=== PATIENT | male | born 1955 | race Caucasian/White ===

== ENCOUNTER 2020-10-05 14:02 | Emergency (ER) | payer OTHER ==
[~2020-10-05] VITALS: Ht 175.3 cm; Wt 99.8 kg
[2020-10-05] MEDS ORDERED: NOHOMEMEDICATIONS (14:28)
[2020-10-05 15:19] LABS: URINE BILIRUBIN NEGATIVE (Negative); URINE BLOOD NEGATIVE (Negative); URINE CLARITY CLEAR; URINE COLOR YELLOW; URINE GLUCOSE-RANDOM NEGATIVE (Negative); URINE KETONES NEGATIVE (Negative); URINE LEUKOCYTES-REFLEX NEGATIVE (Negative); URINE NITRITE-REFLEX NEGATIVE (Negative); URINE PROTEIN 1+ (Negative); URINE SPECIFIC GRAVITY 1.025 (1.005-1.030); URINE UROBILINOGEN 0.2 E.U./dl (0.2-1.0)
[2020-10-05 15:22] VITALS: BP 168/112
--- NOTE | 2020-10-06 14:38 | EKG ---
[place] [address] ELECTROCARDIOGRAM REPORT Name: ANDREW CALDWELL Room: [facility].#: [id number] Admission: 10/05/20 Attend Phys: Discharge: Date of : 51 Date of Service: 10/05/20 1433 Report #: [id number] THIS REPORT FOR: //name// [facility] ED Test Date: 2020-10-05 Test Time: 14:33:06 Pat Name: ANDREW CALDWELL Department: Room: Gender: Dural Mechanic: : 1955 Requested By: Alessandra De Jesus Order Number: [id number] MD: Crow Nagy Measurements Intervals [place] Rate: 91 P: 44 [place]: 165 QRS: -91 QRSD: 168 T: 20 QT: 430 QTc: 530 Interpretive Statements Sinus rhythm Probable left atrial enlargement RBBB and LAFB No previous ECG available for comparison Electronically Signed On 10-06-2020 14:38:11 CDT by Crow Nagy [email or web address] <ELECTRONICALLY SIGNED> By: Crow Nagy MD, [facility] 10/06/20 1438 1433 143 Crow Nagy MD, FACC /EPI
== END 2020-10-05 15:31 | disposition home or self-care (01) ==
LOC: M.ERS 14:02
PROVIDERS: Physician Assistant
DX: F41.9 Anxiety disorder, unspecified (principal)